=== PATIENT | female | born 1985 | race Caucasian/White ===

== ENCOUNTER 2017-11-17 12:59 | Inpatient (IN) | payer SELFPAY ==
--- NOTE | 2017-11-17 15:47 | Ultrasound Report ---
OB LIMITED INDICATION: well being, OSCAR. COMPARISON: None similar at this institution. TECHNIQUE: Transabdominal grayscale ultrasound with Doppler interrogation. Gestation: [place] Position: Cephalic Amniotic Fluid: WNL (7-24 cm) OSCAR = 10.8 cm Heart Rate: 139 BPM CONCLUSION: Findings, as above.
--- NOTE | 2017-11-17 15:48 | Ultrasound Report ---
BIOPHYSICAL PROFILE: INDICATION: well being, OSCAR. COMPARISON: None similar. TECHNIQUE: Transabdominal ultrasound with Doppler interrogation. 2 - breathing movements 2 - movements 0 - posture and tone 2 - Qualitative amniotic fluid volume 6 - TOTAL SCORE OF POSSIBLE 8 Heart Rate (bpm) 139 CONCLUSION: Findings, as above.
--- NOTE | 2017-11-17 21:59 | History and Physical Report ---
History of Present Illness Date of admission: 11/17/17 13:58 Chief complaint: Decreased movement History of present illness: 32yo at 37 5/7 weeks transferred from clinic for decreased movement x 3 days. She has history of routine care at [facility]. Her has been complicated with diet-controlled gestational diabetes. She had a BPP today 6 (-2 Tone). She now reports she feels the baby move but not as much as in the past. She denies loss of fluid and vaginal bleeding. Past History Past Surgical History: no surgical history Social history: - Obstetrical History : 1 Medications and Allergies Allergies Allergy/AdvReac Type Severity Reaction Status Date / Time No Known Allergies Allergy Unverified 11/17/17 13:58 Home Medications Medication Instructions Recorded Confirmed Last Taken Type No Known Home Medications [No 11/17/17 11/17/17 Unknown History Reported Home Medications] - Vital Signs Vital signs: Vital Signs Pulse BP 63 122/72 11/17/17 13:37 11/17/17 13:37 Temp Pulse Resp BP Pulse Ox 67 131/76 82 L 11/17/17 21:45 11/17/17 21:45 11/17/17 17:57 - Obstetrical FHR: auscultation normal, category 1, other ( heart tones 140s, moderate variability, occasional variables) Results All other labs normal. Assessment and Plan - Patient Problems (1) 37 weeks gestation of Current Visit: Yes Status: Acute (2) Decreased movement Current Visit: Yes Status: Acute Plan to address problem: 1. Continuous monitoring 2. Repeat BPP in AM 3. Maternal medicine consult. (3) GDM (gestational diabetes mellitus), class A1 Current Visit: Yes Status: Acute Plan to address problem: Collected fasting and 2hr post prandial blood glucose
--- NOTE | 2017-11-18 09:53 | Event Note ---
Date: 11/18/17 Patient with BPP 6, -2 tone. NST category 1. Plan is repeat BPP, if remains 6 out of 8 will likely proceed with delivery.
--- NOTE | 2017-11-18 11:51 | Ultrasound Report ---
ULTRASOUND BIOPHYSICAL PROFILE: History: Followup BPP Technique: Transabdominal ultrasound with Doppler interrogation. 0 - breathing movements 0 - movements 0 - posture and tone 2 - Qualitative amniotic fluid volume 2 - TOTAL SCORE OF POSSIBLE 8 Heart Rate (bpm) 138
--- NOTE | 2017-11-18 13:28 | Event Note ---
Date: 11/18/17 Patient's BPP result available, BPP 2/8 (+2 fluid). On exam, she is 1-2/100/-2 station Plan is to proceed with delivery. Discussed above with patient with help of Greek interpretation
[2017-11-18] MEDS ORDERED: MINERAL OIL PO PRN (13:40)
[2017-11-18] MEDS ORDERED: SUBLIMAZE IV PRN (13:40)
[2017-11-18] MEDS ORDERED: BRETHINE IVP PRN (13:40)
[2017-11-18] MEDS ORDERED: ePHEDrine SULFATE IV PRN (13:40)
[2017-11-18] MEDS ORDERED: PHENERGAN PO PRN (13:40)
[2017-11-18] MEDS ORDERED: ZOFRAN IV PRN (13:40)
[2017-11-18] MEDS ORDERED: BRETHINE SUB-Q PRN (13:40)
[2017-11-18] MEDS ORDERED: XYLOCAINE 2% INFILTRATI ONE (13:51)
[2017-11-18] MEDS ORDERED: PITOCin/NS 20 UNIT/1000ML DRIP 20 UNITS/1,000 ML BAG IV SCH (14:00)
[2017-11-18] MEDS ORDERED: PITOCin/NS 30 UNIT/500ML 30 UNITS/500 ML BAG IV SCH ×2 (14:00)
[2017-11-18] MEDS ORDERED: LACTATED RINGERS 1,000 ML IV SCH (14:00)
[2017-11-18 14:48] LABS: Hematocrit 37.2 % (30.3-42.9); Hemoglobin 12.5 gm/dl (10.1-14.3); Mean Corpuscular HGB Conc 33 % (30-34); Mean Corpuscular Hemoglobin 27 pg (28-32); Mean Corpuscular Volume 81 fl (79-97); Platelet Count 227 K/mm3 (140-440); Red Blood Count 4.59 M/mm3 (3.65-5.03); Red Cell Distribution Width 15.4 % (13.2-15.2)
--- NOTE | 2017-11-18 22:26 | Event Note ---
Date: 11/18/17 SVE 395/-3/cephalic. Starting Pitocin for augmentation of labor. Pt. reports good movement now. No LOF and no VB.
[2017-11-19] MEDS ORDERED: BICITRA ONE (00:15)
[2017-11-19] MEDS ORDERED: PEPCID IV ONE (00:15)
[2017-11-19] MEDS ORDERED: ANCEF/STERILE WATER 2 GM/20 ML 2 GM/20 ML SYRINGE IV ONE (00:15)
[2017-11-19] MEDS ORDERED: REGLAN ONE (00:15)
--- NOTE | 2017-11-19 00:27 | Anesthesia Consultation ---
Anesthesia Consult and Med Hx Date of service: 11/19/17 - Airway Anesthetic Teeth Evaluation: Good ROM Head & Neck: Adequate Mental/Hyoid Distance: Adequate Mallampati Class: Class II Intubation Access Assessment: Probably Good - Pulmonary Exam CTA: Yes - Cardiac Exam Cardiac Exam: RRR - Pre-Operative Health Status ASA Pre-Surgery Classification: ASA2 Proposed Anesthetic Plan: Spinal - Pulmonary Hx Asthma: No COPD: No Hx Pneumonia: No - Cardiovascular System Hx Hypertension: No - Central Nervous System Hx Seizures: No Hx Psychiatric Problems: No - Endocrine Hx Renal Disease: No Hx End Stage Renal Disease: No Hx Hypothyroidism: No Hx Hyperthyroidism: No - Hematic Hx Anemia: No Hx Sickle Cell Disease: No - Other Systems Hx Alcohol Use: No
--- NOTE | 2017-11-19 00:28 | Anesthesia Day of Surgery ---
Anesthesia Day of Surgery - Day of Surgery Patient Examined: Yes Patient H&P Reviewed: Yes Patient is NPO: Yes
[2017-11-19] MEDS ORDERED: MORPHINE ONE (00:36)
--- NOTE | 2017-11-19 00:53 | Event Note ---
Date: 11/19/17 Prolonged FHR deceleration on 2 milliunits of Pitocin; deceleration now resolved. Pitocin turned off and terbutaline given. intolerance to induction of labor. Stat section called by
[2017-11-19] MEDS ORDERED: NEO SYNEPHRINE/NS Syringe(OR USE) IV ONE (01:20)
[2017-11-19] MEDS ORDERED: VERSED ONE ×2 (01:22)
--- NOTE | 2017-11-19 01:55 | Operative Report ---
Operative Report Operative Report: DATE: 11/19/2017 PREOPERATIVE DIAGNOSIS: 32-year-old at 37+6 weeks, abnormal testing , prolonged deceleration POSTOP DIAGNOSIS: As above NAME OF PROCEDURE: Primary low transverse section SURGEON: MERY CORTES MD [employer]: [place] ANESTHESIA: Combined spinal epidural EBL: 700 mL PATHOLOGY SPECIMEN: None URINE OUTPUT:[] FINDINGS: Male in cephalic presentation, time of 1:14 AM, weight 6 lbs. 11 oz. or 3025 g, Apgars 9 and 9, normal uterus tubes and ovaries bilaterally DESCRIPTION OF PROCEDURE: After informed consent, patient was taken to the operating room where she was prepped and draped in a sterile fashion. Pfannestial incision was performed 2 cm above the pubic symphysis. This was then carried down to the underlying rectus fascia which was scored in the midline. The fascial incision was extended laterally with the use of Yates scissors, anterior leaf was then grasped with Bob's elevated dissected sharply and bluntly off the underlying rectus. In a similar fashion the inferior leaf was grasped elevated dissected sharply and bluntly off the underlying rectus. The rectus was in the midline and the peritoneal cavity was entered without difficulty. After good visualization of the bladder the peritoneal layer was extended up and down; bladder blade was placed in the patient's pelvic cavity, bladder flap was created without difficulty. A hysterotomy incision was then performed with meconium stained amniotic fluid noted. Infant in cephalic presentation was delivered without difficulty in the usual manner; cord was clamped cut and infant was handed over to waiting NICU staff. The placenta was then delivered intact, the uterus was then exteriorized cleared of all clots and debris. Her hysterotomy incision was then closed in a running locked fashion with 0 Vicryl on a CTX; using the same suture were able to imbricate the initial layer. The uterus was then returned to the patient's pelvic cavity; the peritoneal edges were grasped with hemostats and Rosario's; irrigation was used to clear the gutters of all clots and debris. Tisseel hemostatic agent was applied copiously over the hysterotomy incision. The bladder flap was then closed in a running fashion with 3-0 Vicryl. The peritoneal layer was closed in a running fashion with 3-0 Vicryl; the rectus was reapproximated with a single [id number] stitch. The fascia was then closed in a running fashion with 0 Vicryl; the subcutaneous layer was reapproximated with a single [id number] stitch. The skin was then closed in a subcuticular manner with 4-0 Monocryl. She tolerated the procedure well lap and instrument counts were correct 2, she did receive 2 grams of Ancef prior to the procedure. She is transferred to PACU in stable condition.
[2017-11-19] MEDS ORDERED: SENOKOT PO PRN (01:56)
[2017-11-19] MEDS ORDERED: MILK OF MAGNESIA PO PRN (01:56)
[2017-11-19] MEDS ORDERED: TUCKS PAD TP PRN (01:56)
[2017-11-19] MEDS ORDERED: TYLENOL PO PRN (01:56)
[2017-11-19] MEDS ORDERED: MYLICON PO PRN (01:56)
[2017-11-19] MEDS ORDERED: NARCAN 0.4 MG/1 ML IV PRN (01:56)
[2017-11-19] MEDS ORDERED: PHENERGAN PR PRN (01:56)
[2017-11-19] MEDS ORDERED: ANUCORT-HC PR PRN (01:56)
[2017-11-19] MEDS ORDERED: LANSINOH TP PRN (01:56)
[2017-11-19] MEDS ORDERED: PITOCin/NS 20 UNIT/1000ML DRIP 20 UNITS/1,000 ML BAG IV SCH (02:00)
[2017-11-19] MEDS ORDERED: SODIUM CHLORIDE FLUSH SYRINGE 10 ML IV PRN (02:00)
--- NOTE | 2017-11-19 02:08 | Post Anesthesia Evaluation ---
- Post Anesthesia Evaluation Patient Participated: Yes Airway Patent: Yes Stable Respiratory Function: Yes Nausea/Vomiting: No Temp > 96.8F: Yes Pain Manageable: Yes Adequeate Hydration: Yes Anesthesia Complications: No Block Receding Appropriately: Yes Patient on Ventilator: No
[2017-11-19] MEDS: D5LR 1,000 ML IV SCH ×2 (08:40→16:19)
[2017-11-19] MEDS: TORADOL IV PRN ×2 (08:52→16:17)
--- NOTE | 2017-11-19 11:07 | Progress Note ---
Assessment and Plan A: day of delivery S/P primary low transverse section. P: Encouraged patient to ambulate with assistance today. Will advance diet as tolerated and remove Bethea catheter. Subjective - Subjective Date of service: 11/19/17 Principal diagnosis: day of delivery S/P primary low transverse section Interval history: day 1 S/P primary low transverse section. Patient is doing well. She denies pain; she denies nausea or vomiting. She reports she is passing gas. Still has Bethea catheter. Patient denies headache, cough, chest pain, abdominal pain, shortness of breath , abdominal pain, leg pain, or heavy vaginal bleeding. Patient states she does not plan to use contraception. Patient reports: appetite normal, pain well controlled, flatus : doing well Objective - Vital Signs Latest vital signs: Vital Signs Temp Pulse Resp BP BP Pulse Ox 11/19/17 07:40 98.5 F 85 18 119/73 97 11/19/17 02:35 80 18 96/68 99 11/19/17 02:20 90 18 102/64 99 11/19/17 02:16 96 H 18 94/57 99 11/19/17 02:11 90 18 101/45 99 11/19/17 02:06 98.8 F 88 18 109/46 99 11/19/17 00:33 116 H 99 11/19/17 00:28 100 H 100 11/19/17 00:23 95 H 100 11/19/17 00:18 89 100 11/19/17 00:08 55 L 105/56 11/18/17 23:37 61 108/65 11/18/17 21:24 75 98 11/18/17 21:19 80 98 11/18/17 21:14 72 125/67 98 11/18/17 21:09 97.6 F 76 16 125/67 98 11/18/17 18:17 20 11/18/17 17:08 75 97 11/18/17 17:03 81 98 11/18/17 16:58 83 98 11/18/17 16:53 75 98 11/18/17 16:48 75 98 11/18/17 16:43 76 98 11/18/17 16:38 80 97 11/18/17 16:33 87 97 11/18/17 16:28 71 98 11/18/17 16:23 78 98 11/18/17 16:18 69 97 11/18/17 16:13 74 97 11/18/17 16:08 77 97 11/18/17 16:03 71 98 11/18/17 15:58 73 96 11/18/17 15:53 73 98 11/18/17 15:48 71 97 11/18/17 15:43 76 98 11/18/17 15:38 74 97 11/18/17 15:33 75 98 11/18/17 15:28 78 97 11/18/17 15:23 77 97 11/18/17 15:18 75 98 11/18/17 15:13 76 97 11/18/17 15:08 84 98 11/18/17 15:03 85 98 11/18/17 14:58 75 98 11/18/17 14:53 84 98 11/18/17 14:48 83 98 11/18/17 13:32 74 97 11/18/17 13:27 80 98 11/18/17 13:22 76 97 11/18/17 13:17 77 96 11/18/17 13:12 76 98 11/18/17 13:07 76 97 11/18/17 13:02 68 97 11/18/17 12:57 69 98 11/18/17 12:52 71 98 11/18/17 12:47 70 98 11/18/17 12:42 72 97 11/18/17 12:37 74 97 11/18/17 12:32 70 97 11/18/17 12:27 75 97 11/18/17 12:22 78 97 11/18/17 12:17 75 97 11/18/17 12:12 73 97 11/18/17 12:07 71 98 11/18/17 12:02 69 98 11/18/17 11:59 66 0 L Intake and Output 11/18/17 11/19/17 11/19/17 23:59 07:59 15:59 Intake Total 320 Balance 320 Intake: Oral 320 Other: Weight 73.936 kg Estimated Blood Loss 700 - Exam Breasts: Present: deferred Cardiovascular: Present: Regular rate, Normal S1, Normal S2 Lungs: Present: Clear to auscultation Abdomen: Present: normal appearance, soft, normal bowel sounds. Absent: distention, tenderness, guarding, rigidity Uterus: Present: normal, firm, fundal height below umbilicus. Absent: bogginess , tenderness Extremities: Present: normal. Absent: tenderness, edema Incision: Present: normal, dry, intact, dressed - Labs Labs: Abnormal lab results 11/18/17 Range/Units 14:00 MCH 27 L (28-32) pg RDW 15.4 H (13.2-15.2) %
[2017-11-19 14:50] LABS: Hematocrit 33.2 % (30.3-42.9)
[2017-11-20] MEDS: MOTRIN PO PRN ×3 (00:13→18:48)
[2017-11-20] MEDS: PERCOCET 5/325 PO PRN (00:16)
[2017-11-20] MEDS ORDERED: M-M-R II VACCINE SUB-Q ONE (01:56)
[2017-11-20] MEDS ORDERED: BOOSTRIX IM ONE (06:00)
--- NOTE | 2017-11-20 10:41 | Progress Note ---
Assessment and Plan A: /postop day 1 S/P primary low transverse section. P: Encouraged patient to ambulate. Subjective - Subjective Date of service: 11/20/17 Principal diagnosis: day 1 S/P primary low transverse section Interval history: day 1 S/P primary low transverse section. Doing well. . Patient reports small amount of lochia. Patient is ambulating well. She is tolerating a regular diet. Voiding without difficulty. Patient denies headache, cough, shortness of breath, chest pain, nausea or vomiting, abdominal pain, leg pain, or heavy vaginal bleeding. Patient reports: appetite normal, voiding normally, pain well controlled, flatus , ambulating normally [place]: doing well Objective - Vital Signs Latest vital signs: Vital Signs Temp Pulse Resp BP BP Pulse Ox 11/20/17 00:00 98 F 78 18 101/69 11/19/17 20:30 98 F 75 16 118/76 11/19/17 16:36 98.7 F 82 18 115/78 98 11/19/17 11:25 98.7 F 74 16 117/75 98 Intake and Output 11/19/17 11/20/17 11/20/17 23:59 07:59 15:59 Intake Total 1196.25 1300 Output Total 800 Balance 396.25 1300 Intake: IV 956.25 1000 D5lr 1,000 ml @ 125 mls/ 956.25 1000 hr IV DIRECT SHILO Rx#: [id number] Oral 240 Intake, Free Water 300 Output: Urine 400 Void 400 Stool 0 Urine/Stool Mix 400 Other: Total, Intake Amount 240 Total, Output Amount 400 - Exam Cardiovascular: Present: Regular rate, Normal S1, Normal S2 Lungs: Present: Clear to auscultation Abdomen: Present: normal appearance, soft, normal bowel sounds. Absent: distention, tenderness, guarding, rigidity Uterus: Present: normal, firm, fundal height below umbilicus. Absent: bogginess , tenderness Extremities: Present: normal. Absent: tenderness, edema Incision: Present: normal, dry, intact, dressed
[2017-11-20] MEDS: FEOSOL PO SCH (12:27)
[2017-11-20] MEDS: PRENATAL VITAMIN PO SCH (12:27)
[2017-11-21] MEDS: MOTRIN PO PRN ×2 (01:56→12:31)
[2017-11-21] MEDS: PERCOCET 5/325 PO PRN ×2 (01:58→12:30)
--- NOTE | 2017-11-21 09:50 | Progress Note ---
Assessment and Plan - Patient Problems (1) S/P primary low transverse Current Visit: Yes Status: Acute Plan to address problem: POD 2 - satble Discharge to home today Follow up at [facility] in 1-2 weeks for incision check Subjective - Subjective Date of service: 11/21/17 Principal diagnosis: s/p Primary LTCS; POD 2 Patient reports: appetite normal, voiding normally, pain well controlled, flatus , ambulating normally, no bowel movement : doing well, bottle feeding Objective - Vital Signs Latest vital signs: Vital Signs Temp Pulse Resp BP Pulse Ox 11/21/17 09:05 98.3 F 70 16 104/63 100 11/20/17 23:30 98.6 F 78 16 111/71 11/20/17 16:00 97.8 F 66 18 106/67 98 - Exam Abdomen: Present: normal appearance, soft Vulva: both: normal Uterus: Present: normal, firm, fundal height below umbilicus Extremities: Present: normal Incision: Present: normal, dry, intact
--- NOTE | 2017-11-21 09:52 | Discharge Summary ---
Providers - Providers Date of Admission: 11/18/17 13:41 Date of discharge: 11/21/17 Attending physician: JUSTINO FRANCIS MD Primary care physician: JUSTINO FRANCIS MD Hospitalization Reason for admission: induction of labor, IUP at term Delivery: Procedure: primary low transverse Episiotomy: none Laceration: none Incision: normal, dry, intact complications: none Discharge diagnosis: IUP at term delivered [place] baby: male Hospital course: Uncomplicated Condition at discharge: Stable Disposition: DC-01 TO HOME OR SELFCARE - Discharge Diagnoses (1) S/P primary low transverse Status: Acute Plan - Discharge Medications Prescriptions: Ibuprofen [Motrin 600 MG tab] 600 mg PO Q8H PRN #30 tablet PRN Reason: Pain Multivitamin with Iron [Multivitamins with Iron] 1 each PO DAILY #30 tablet oxyCODONE /ACETAMINOPHEN [Percocet 5/325] 1 tab PO Q6HR PRN #30 tablet PRN Reason: Pain oxyCODONE /ACETAMINOPHEN [Percocet 5/325] 1 tab PO Q6HR PRN #30 tablet PRN Reason: Pain - Provider Discharge Summary Activity: routine, no sex for 6 weeks, no heavy lifting 4 weeks, no strenuous exercise Diet: routine Instructions: routine Additional instructions: [] Smoking cessation referral if applicable(refer to patient education folder for contact #) [] Refer to [facility] Booklet Call your doctor immediately for: * Fever > 100.5 * Heavy vaginal bleeding ( >1 pad per hour) * Severe persistent headache * Shortness of breath * Reddened, hot, painful area to leg or breast * Drainage or odor from incision. * Keep incision clean and dry at all times and follow doctor's instructions regarding bathing/showering - Follow up plan Follow up: JUSTINO FRANCIS MD [Primary Care Provider] - 14 Days (Follow up at [facility] in 1-2 weeks for incision check)
[2017-11-21] MEDS: FEOSOL PO SCH (12:30)
[2017-11-21] MEDS: PRENATAL VITAMIN PO SCH (12:30)
[2017-11-21 14:05] VITALS: BP 116/70
== END 2017-11-21 15:57 | disposition home or self-care (01) | DRG 766 ==
LOC: TRG 12:59 → LD 13:58 → OBSVTOIN 11-18 13:41 → OB 11-19 07:38
PROVIDERS: ADMIT Obstetrics & Gynecology; ATTEND Obstetrics & Gynecology
PROC: 10D00Z1 Extraction of Products of Conception, Low, Open Approach (ICD-10-PCS; principal; 2017-11-19)
PROC: 3E0234Z Introduction of Serum, Toxoid and Vaccine into Muscle, Percutaneous Approach (ICD-10-PCS; 2017-11-20)
DX: O76 Abnormality in fetal heart rate and rhythm complicating labor and delivery (principal); O24.420 Gestational diabetes mellitus in childbirth, diet controlled; O36.8130 Decreased fetal movements, third trimester, not applicable or unspecified; Z3A.37 37 weeks gestation of pregnancy; Z37.0 Single live birth; Z23 Encounter for immunization
CPT/HCPCS: 36415; 59025; 76815; 76819; 85014; 85018; 85027; 86592; 86850; 86900; 86901; 90707; C9250; G0378; J0690; J1885; J2250; J2270; J2370; J2405; J2590; J2765; J3010; J3105; J7120; J7121

== ENCOUNTER 2020-10-02 03:42 | Inpatient (IN) | payer MEDICAID, OTHER ==
[2020-10-02] MEDS ORDERED: OXYTOCIN DRIP 30,000 MILLIUNITS/500 ML BAG IV ONE (03:47)
[2020-10-02] MEDS ORDERED: MINERAL OIL 30 ML ORAL LIQD ONE (03:59)
[2020-10-02] MEDS ORDERED: LIDOCAINE (2%) 20 MG/1 ML VIAL 20 ML MDV INFILTRATI ONE ×3 (03:59→05:36)
[2020-10-02] MEDS ORDERED: OXYTOCIN 10 UNIT/1 ML INJ ONE (04:15)
[2020-10-02] MEDS ORDERED: fentaNYL 100 MCG/2 ML INJ IV ONE (04:28)
[2020-10-02] MEDS ORDERED: OXYTOCIN 10 UNIT/1 ML INJ IM ONE (04:28)
[2020-10-02] MEDS ORDERED: fentaNYL 100 MCG/2 ML INJ ONE (04:29)
[2020-10-02 04:45] LABS: Hemoglobin 14.7 gm/dl (10.1-14.3)
[2020-10-02] MEDS ORDERED: OXYTOCIN DRIP 30 UNITS/500 ML BAG IV SCH ×2 (05:00→06:00)
[2020-10-02 05:03] LABS: Hematocrit 42.9 % (30.3-42.9); Mean Corpuscular HGB Conc 35 % (30-34); Mean Corpuscular Volume 93 fl (79-97); Platelet Count 224 K/mm3 (140-440); Red Blood Count 4.63 M/mm3 (3.65-5.03); Red Cell Distribution Width 13.5 % (13.2-15.2)
[2020-10-02] MEDS ORDERED: MINERAL OIL 30 ML ORAL LIQD PO PRN (05:36)
[2020-10-02] MEDS ORDERED: OXYTOCIN 10 UNIT/1 ML INJ IM PRN (05:36)
[2020-10-02] MEDS ORDERED: HYDROcodone/ACETAMINOPHEN 5-325 MG TAB PO PRN (05:42)
[2020-10-02] MEDS ORDERED: MAGNESIUM HYDROXIDE (MOM) ORAL LIQD UDC PO PRN (05:42)
[2020-10-02] MEDS ORDERED: WITCH HAZEL/ GLYCERIN PAD TP PRN (05:42)
[2020-10-02] MEDS ORDERED: LANOLIN/ZINC/DIMETHICONE (LANSINOH) 7 GM TP PRN (05:42)
[2020-10-02] MEDS ORDERED: LACTATED RINGERS 1,000 ML IV SCH (05:45)
--- NOTE | 2020-10-02 05:49 | History and Physical Report ---
History of Present Illness Date of examination: 10/02/20 Date of admission: 10/02/20 03:51 Chief complaint: Contractions, need to push History of present illness: 35 year old presented to L&D with regular painful contractions and needing to push. Patient received care at [facility] and she brings records with her. LMP 01/14/2020. EDC 10/20/2020. significant for the following: one previous section in 2018 for nonreassuring FHR tracing. labs on records are as follows: O+, antibody screen negative, rubella immune, no HIV result available, RPR nonreactive, hepatitis B surface antigen negative, gonorrhea negative, chlamydia negative, no GBS test result available. 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 denies: smoking, alcohol abuse, prescription drug abuse, IV drug use - Obstetrical History Expected Date of Delivery: 10/20/20 Actual Gestation: 37 Week(s) 3 Day(s) : 2 Para: 1 Hx # Term Pregnancies: 1 Number of Pregnancies: 0 Spontaneous Abortions: 0 Induced : 0 Number of Living Children: 1 Medications and Allergies Allergies Allergy/AdvReac Type Severity Reaction Status Date / Time No Known Allergies Allergy Unverified 11/17/17 13:58 Home Medications Medication Instructions Recorded Confirmed Last Taken Type Ibuprofen [Motrin 600 MG tab] 600 mg PO Q8H PRN #30 tablet 11/19/17 Unknown Rx Multivitamin with Iron 1 each PO DAILY #30 tablet 11/19/17 Unknown Rx [Multivitamins with Iron] oxyCODONE /ACETAMINOPHEN [Percocet 1 tab PO Q6HR PRN #30 tablet 11/19/17 Unknown Rx 5/325] oxyCODONE /ACETAMINOPHEN [Percocet 1 tab PO Q6HR PRN #30 tablet 11/20/17 Unknown Rx 5/325] Active Meds: Active Medications Hydrocodone Bitart/Acetaminophen (Hydrocodone/Acetaminophen 5-325 Mg Tab) 2 each PO Q6H PRN PRN Reason: Pain, Moderate (4-6) Docusate Sodium (Docusate Sodium 100 Mg Cap) 100 mg PO BID SHILO Oxytocin/Sodium Chloride (Pitocin/Ns 30 Unit/500ml) 30 units in 500 mls @ 0 mls/hr IV TITR SHILO; Protocol Last Admin: 10/02/20 04:34 Dose: 40 ml/hr, 40 mls/hr Documented by: Lactated Ringer's (Lactated Ringers) 1,000 mls @ 125 mls/hr IV DIRECT SHILO Oxytocin/Sodium Chloride (Pitocin/Ns 30 Unit/500ml) 30 units in 500 mls @ 40 mls/hr IV TITR SHILO; Protocol Ibuprofen (Ibuprofen 600 Mg Tab) 600 mg PO Q6H SHILO Lidocaine (Lidocaine (2%) 20 Mg/1 Ml Vial 20 Ml Mdv) 20 ml INFILTRATI ONCE ONE Stop: 10/02/20 05:37 Magnesium Hydroxide (Magnesium Hydroxide (Mom) Oral Liqd Udc) 30 ml PO HS PRN PRN Reason: Constipation Mineral Oil (Mineral Oil 30 Ml Oral Liqd) 30 ml PO QHS PRN PRN Reason: Constipation Multi-Ingredient Ointment (Lanolin/Zinc/Dimethicone (Lansinoh) 7 Gm) 1 applic TP PRN PRN PRN Reason: Sore Nipples Oxytocin (Oxytocin 10 Unit/1 Ml Inj) 10 unit IM ONCE PRN PRN Reason: Uterine Bleeding Sodium Chloride (Sodium Chloride 0.9% 10 Ml Flush Syringe) 10 ml IV PRN NR Witch Ioana/Glycerin (Witch Ioana/ Glycerin Pad) 1 each TP PRN PRN PRN Reason: Hemorrhoid/cleansing/soothing Review of Systems All systems: negative (contractions, need to push) - Vital Signs Vital signs: Vital Signs Pulse BP 103 H 118/63 10/02/20 03:57 10/02/20 03:57 Temp Pulse Resp BP Pulse Ox 98.8 F 103 H 20 115/64 10/02/20 05:18 10/02/20 05:32 10/02/20 05:18 10/02/20 05:32 - Physical Exam Abdomen: Positive: normal appearance, soft. Negative: distention, tenderness, guarding, rigidity Genitourinary (Female): Positive: normal external genitalia, normal perenium. Negative: perineal/vulvar lesions Vagina: Positive: normal moisture Uterus: Positive: enlarged. Negative: tender Anus/Rectum: Positive: normal perianal skin Extremities: Positive: normal. Negative: tenderness, edema - Obstetrical FHR: category 2 Uterine Contraction Monitor Mode: External Cervical Dilatation: 10 Cervical Effacement Percentage: 100 station: 0 Uterine Contraction Pattern: Regular Uterine Contraction Intensity: Strong/Firm Results Result Diagrams: 10/02/20 03:51 Abnormal lab results 10/02/20 Range/Units 03:51 WBC 19.3 H (4.5-11.0) K/mm3 Hgb 14.7 H (10.1-14.3) gm/dl MCHC 35 H (30-34) % All other labs normal. Assessment and Plan A: at 37 weeks, 3 days gestation. Active advanced labor. Previous section. GBS unknown. P: Admit. [facility]. Called Dr. Kraft at time of patient's presentation to L&D and notified him of patient's previous section and delivery imminent. Dr. Kraft came promptly to hospital and was present in patient's room during much of repair.
--- NOTE | 2020-10-02 06:01 | Procedure Note ---
OB Delivery Note - Delivery Date of Delivery: 10/02/20 Surgeon: CHELO FERRARI Estimated blood loss: 200cc - Vaginal Delivery presentation: vertex Delivery position: OA Intrapartum events: precipitous labor- <3hr () Delivery induction: none Delivery monitor: external FHT, external uterine Route of delivery: Delivery placenta: spontaneous Delivery cord: 3 umbilical vessels Episiotomy: none Delivery laceration: 2nd degree Delivery repair: vicryl Anesthesia: local Delivery comments: Precipitous spontaneous vaginal delivery at 04:10 of liveborn female weighing 6 lb. 13 oz. over 2nd degree perineal laceration with apgars of 8/9. No nuchal cord; was atraumatic. Baby was placed skin to skin with mom immedia tely after delivery. Spontaneous cry and respirations. Baby suctioned with bulb syringe and dried with warm towels. 3 vessel cord double clamped and cut; cord blood obtained. Spontaneous delivery of intact placenta and membranes by padilla mechanism. EBL 200 cc (QBL 161 cc). Pitocin to IV fluids after delivery of placenta. Fundus firm and midline. 2nd degree perineal laceration repaired with 2-0 vicryl under lidocaine local. Superficial first degree right periurethral laceration was not bleeding and was not repaired. Vaginal sweep negative. Sponge count correct times 2. Mother and baby stable. Dr. Kraft was notified of patient's previous section upon patient's arrival to unit and he came promptly to hospital and was present in room for part of perineal repair.
[2020-10-02] MEDS: IBUPROFEN 600 MG TAB PO SCH (10:33)
[2020-10-02] MEDS: DOCUSATE SODIUM 100 MG CAP PO SCH (10:34)
[2020-10-03] MEDS: IBUPROFEN 600 MG TAB PO SCH ×3 (01:33→23:45)
[2020-10-03] MEDS: DOCUSATE SODIUM 100 MG CAP PO SCH ×3 (01:34→22:10)
[2020-10-03 09:46] LABS: Basophils # (Auto) 0.1 K/mm3 (0.0-0.1); Basophils % (Auto) 0.5 % (0.0-1.8); Eosinophils % (Auto) 0.3 % (0.0-4.3); Hematocrit 35.7 % (30.3-42.9); Lymphocytes # (Auto) 2.2 K/mm3 (1.2-5.4); Lymphocytes % (Auto) 16.5 % (13.4-35.0); Mean Corpuscular HGB Conc 34 % (30-34); Mean Corpuscular Volume 95 fl (79-97); Monocytes % (Auto) 7.3 % (0.0-7.3); Platelet Count 199 K/mm3 (140-440); Red Blood Count 3.78 M/mm3 (3.65-5.03); Red Cell Distribution Width 13.7 % (13.2-15.2)
--- NOTE | 2020-10-03 14:04 | Progress Note ---
Assessment and Plan A: day 1 S/P . P: Continue routine care. Anticipate discharge home tomorrow if patient continues to do well. Subjective - Subjective Date of service: 10/03/20 Principal diagnosis: day 1 S/P Interval history: Doing well; no complaints Patient reports: appetite normal, voiding normally, pain well controlled, flatus, ambulating normally, no dizzy ambulation, no nauseated : doing well Objective - Vital Signs Latest vital signs: Vital Signs Temp Pulse Resp BP BP Pulse Ox 10/03/20 08:00 98.4 F 81 15 101/56 98 10/03/20 00:45 98.4 F 84 18 105/59 96 10/02/20 16:36 97.4 F L 82 20 107/65 97 Intake and Output 10/02/20 10/03/20 10/03/20 23:59 07:59 15:59 Intake Total 360 240 Balance 360 240 Intake: Oral 360 240 Other: Total, Intake Amount 120 120 # Voids Void 1 1 - Exam Cardiovascular: Present: Regular rate Lungs: Present: Clear to auscultation Abdomen: Present: normal appearance, soft, normal bowel sounds. Absent: distention, tenderness, guarding, rigidity Uterus: Present: normal, firm, fundal height below umbilicus. Absent: b ogginess, tenderness Extremities: Present: normal. Absent: tenderness, edema - Labs Labs: Abnormal lab results 10/03/20 Range/Units 07:58 WBC 13.1 H (4.5-11.0) K/mm3 [place] # (Auto) 1.0 H (0.0-0.8) K/mm3 Seg Neutrophils % 75.4 H (40.0-70.0) % Seg Neutrophils # 9.9 H (1.8-7.7) K/mm3
[2020-10-04] MEDS: IBUPROFEN 600 MG TAB PO SCH ×2 (06:10→12:36)
--- NOTE | 2020-10-04 07:27 | Progress Note ---
Assessment and Plan A: day 1 S/P . P: Repeat CBC. If stable, plan to discharge patient home later today when baby is able to go. Discussed with patient discharge instructions and warning signs. Advised patient to avoid intercourse, lifting, and housework. Advised patient to follow up at [facility] in 6 weeks. Patient voiced unders tanding of instructions. Subjective - Subjective Date of service: 10/04/20 Principal diagnosis: day 2 S/P Interval history: Patient desires discharge home later today when baby able to go. Patient reports: appetite normal, voiding normally, pain well controlled, flatus, ambulating normally, no dizzy ambulation, no nauseated : doing well Objective - Vital Signs Latest vital signs: Vital Signs Temp Pulse Resp BP BP Pulse Ox 10/04/20 06:10 20 10/04/20 01:04 97.9 F 86 20 108/40 98 10/03/20 23:45 20 10/03/20 09:39 101/56 10/03/20 08:00 98.4 F 81 15 101/56 98 Intake and Output 10/03/20 10/03/20 10/04/20 15:59 23:59 07:59 Intake Total 360 Balance 360 Intake: Intake, Free Water 360 Other: # Voids Void 2 - Exam Cardiovascular: Present: Regular rate Lungs: Present: Clear to auscultation Abdomen: Present: normal appearance, soft. Absent: distention, tenderness, guarding, rigidity Uterus: Present: normal, firm, fundal height below umbilicus. Absent: bogginess, tenderness Extremities: Present: normal. Absent: tenderness, edema - Labs Labs: Abnormal lab results 10/03/20 Range/Units 07:58 WBC 13.1 H (4.5-11.0) K/mm3 Trigg # (Auto) 1.0 H (0.0-0.8) K/mm3 Seg Neutrophils % 75.4 H (40.0-70.0) % Seg Neutrophils # 9.9 H (1.8-7.7) K/mm3
--- NOTE | 2020-10-04 08:18 | Discharge Summary ---
Providers - Providers Date of Admission: 10/02/20 03:51 Date of discharge: 10/04/20 Attending physician: THERESA ERICKSON MD Primary care physician: THERESA ERICKSON MD Hospitalization Delivery: complications: none Condition at discharge: Stable Disposition: [id number] TO HOME OR SELFCARE Plan - Provider Discharge Summary Activity: no sex for 6 weeks Diet: routine Instructions: routine Additional instructions: [] Smoking cessation referral if applicable(refer to patient education folder for contact #) [] Refer to [facility] Booklet Call your doctor immediately for: * Fever > 100.5 * Heavy vaginal bleeding ( >1 pad per hour) * Severe persistent headache * Shortness of breath * Reddened, hot, painful area to leg or breast * Drainage or odor from incision. * Keep incision clean and dry at all times and follow doctor's instructions regarding bathing/showering - Follow up plan Follow up: THERESA ERICKSON MD [Primary Care Provider] - 6 Weeks
[2020-10-04 08:26] VITALS: BP 103/62
[2020-10-04] MEDS: DOCUSATE SODIUM 100 MG CAP PO SCH (10:00)
[2020-10-04 11:05] LABS: Basophils % (Auto) 0.3 % (0.0-1.8); Eosinophils # (Auto) 0.1 K/mm3 (0.0-0.4); Eosinophils % (Auto) 0.9 % (0.0-4.3); Hemoglobin 11.1 gm/dl (10.1-14.3); Lymphocytes # (Auto) 1.5 K/mm3 (1.2-5.4); Lymphocytes % (Auto) 13.1 % (13.4-35.0); Mean Corpuscular HGB Conc 35 % (30-34); Mean Corpuscular Volume 93 fl (79-97); Monocytes # (Auto) 0.8 K/mm3 (0.0-0.8); Monocytes % (Auto) 7.1 % (0.0-7.3); Platelet Count 199 K/mm3 (140-440); Red Blood Count 3.44 M/mm3 (3.65-5.03); Red Cell Distribution Width 13.6 % (13.2-15.2)
== END 2020-10-04 12:45 | disposition home or self-care (01) | DRG 807 ==
LOC: TRG 03:42 → LD 03:51 → OB 06:38
PROC: 10E0XZZ Delivery of Products of Conception, External Approach (ICD-10-PCS; principal; 2020-10-02)
PROC: 0KQM0ZZ Repair Perineum Muscle, Open Approach (ICD-10-PCS; 2020-10-02)
DX: O62.3 Precipitate labor (principal); Z37.0 Single live birth; Z3A.37 37 weeks gestation of pregnancy; O70.1 Second degree perineal laceration during delivery
CPT/HCPCS: 36415; 85025; 85027; 86592; 86706; 86803; 86850; 86900; 86901; 87806; G0378; J2590; J3010; U0003